=== PATIENT | female | born 1985 | race Hispanic/Latino ===

== ENCOUNTER 2019-09-20 11:34 | Inpatient (IN) | payer OTHER, SELFPAY ==
[2019-09-20] VITALS (16 sets, daily range): BP systolic 113–150; BP diastolic 65–108; PULSE 71–124; RESP 18; TEMP 36.4–36.9; O2SAT 97–99
[2019-09-20 12:16] LABS: Basophils Absolute Auto 0.1 K/mm3 (0.0-0.1); Basophils Percent Auto 0.5 % (0.2-1.2); Eosinophils Percent Auto 0.2 % (0-4.4); Hematocrit 40.9 % (37.0-47.0); Hemoglobin 14.2 g/dL (12.0-15.0); Immature Granulocyte Absolute 0.08 K/mm3 (0.00-0.031); Immature Granulocyte Percent A 0.7 % (0-0.5); Lymphocytes Absolute Auto 1.85 K/mm3 (0.9-3.2); Lymphocytes Percent Auto 15.3 % (18.3-44.2); Mean Corpuscular HGB Conc 34.7 g/dl (32-36); Mean Corpuscular Hemoglobin 29.3 pg (26-34); Mean Corpuscular Volume 84.5 fl (80-100); Mean Platelet Volume 10.8 fl (7.4-10.4); Monocytes Absolute Auto 0.5 K/mm3 (0.1-0.6); Monocytes Percent Auto 4.2 % (2.6-8.5); Neutrophils Absolute Auto 9.6 K/mm3 (1.3-6.7); Neutrophils Percent Auto 79.1 % (45.5-73.1); Platelet Count Result 347 k/mm3 (150-375); Red Blood Count 4.84 M/mm3 (4.2-5.4); Red Cell Distribution Width 13.6 % (11.5-14.5); White Blood Count 12.1 K/mm3 (4.5-10.0)
[2019-09-20] MEDS: OXYTOCIN 30 UNITS/NS 500 ML 30 UNITS/500 ML BAG 999 UNITS (12:40)
--- NOTE | 2019-09-20 12:47 | PM.IMHP ---
H&P: HPI History of Present Illness Chief complaint: active labor Narrative: Coty Olivera is a 34 year old female at 40w0d presented to L&D in labor. On initial exam by staff, she was noted to be 6-7cms and quickly progressed to 8cm. Denies any medical problems or complications with . Review of Systems Constitutional: Constitutional: Reports no additional constitutional complaints ENT: Reports system reviewed and no additional complaints, except as documented Cardiovascular: Cardiovascular: Reports no additional cardiovascular complaints Respiratory: Respiratory: Reports no additional respiratory complaints Gastrointestinal: Comments: painful contractions Genitourinary: Genitourinary: Reports no additional female genitourinary complaints Musculoskeletal: Musculoskeletal: Reports no additional musculoskeletal complaints Integumentary/Breasts: Skin/Breast: Reports system reviewed and no additional complaints, except as docu Neurologic: Reports system reviewed and no additional complaints, except as documented Psychiatric: Psychiatric: Reports no additional psychiatric complaints PMFSH Family History Family History Mother Diabetes mellitus Grandparent Diabetes mellitus Social History Social History Substance use: never Spiritual care concerns: No Meds Home Medications and Allergies Home Medications Medication Instructions Recorded Confirmed Type PNV cmb#95-ferrous fumarate-FA 1 tablet PO DAILY 09/15/19 09/15/19 History [] folic acid 09/15/19 History Allergies Allergy/AdvReac Type Severity Reaction Status Date / Time No Known Allergies Allergy Verified 09/15/19 14:42 Vital Signs Vital Signs - 24 hr 09/20/19 12:04 09/20/19 12:16 09/20/19 12:31 Pulse Rate 102 H 108 H 124 H Blood Pressure 136/94 H 133/90 150/108 H Pulse Oximetry 97 09/20/19 12:42 09/20/19 12:46 Pulse Rate 84 83 Blood Pressure 125/77 127/76 Pulse Oximetry Exam Const: General: uncomfortable (with contractions) Resp: Effort & Inspection: normal respiratory effort Cardio: Rate: regular rate GI: Other: gravid : Other: cervix anterior lip Psych: Mental Status: mental status grossly normal H&P: Results Labs Labs: Short CBC 09/20/19 Range/Units 12:10 WBC 12.1 H (4.5-10.0) K/mm3 Hgb 14.2 (12.0-15.0) g/dL Hct 40.9 (37.0-47.0) % Plt Count 347 (150-375) k/mm3 Assessment and Plan Assessment and plan (1) 40 weeks gestation of : Code(s): Z3A.40 - 40 weeks gestation of Status: Acute (2) Active labor at term: Status: Acute Assessment and Plan: admit for delivery (3) Advanced maternal age in multigravida: Code(s): O09.529 - Supervision of elderly multigravida, unspecified trimester Status: Acute
--- NOTE | 2019-09-20 12:51 | P.PCNOB_ITS ---
OB - Delivery Note Procedure Delivery date: 09/20/19 Procedure: Normal spontaneous vaginal delivery Route of delivery: Laceration description: Perineal - 1st Degree Specimen: Yes (placenta) Estimated blood loss (mL): 100 Anesthesia type: None Complications: meconium stained fluid and nuchal cordx1 reduced at perineum [place] Baby Date of : 09/20/19 Time of : 12:33 Weeks of gestation at delivery: 40 gender: Male Weight (pounds): 8 Weight (ounces): 4 presentation: vertex position: Right Occiput Anterior Placenta delivery description: Spontaneous cord vessel description: 3 Vessels, Nuchal Cord, Loose and Reduced score one minute: 8 score five minutes: 9
--- NOTE | 2019-09-20 13:31 | LDADM ---
This patient, Coty Olivera, was admitted to Labor/Delivery/Recovery 105 on 09/20/19 at 11:34. Plans for labor, pain management and were discussed with patient. Patient/family oriented to hospital policies and general routines including ID bracelet, bed and alarms, visiting hours, pain management, procedures, bathroom and other care routines, personal items, smoking policy, room service/diet and guest tray routines, infant security routines, and visiting hours. Patient/Family are encouraged to report perceived risks to care and to ask questions if they do not understand what they are told or what they should do. See OBIX for further documentation.
[2019-09-20] MEDS: OXYTOCIN 30 UNITS/NS 500 ML 30 UNITS/500 ML BAG 125 UNITS (13:47)
[2019-09-20] MEDS: IBUPROFEN 600 MG TABLET PO (15:53)
[2019-09-20] MEDS: BENZOCAINE 20% AER SPR (*SP) 56 GM CAN 1 SPRAY TOPICAL (15:54)
[2019-09-20] MEDS: LANOLIN (LANSINOH) 7.5 GM CREAM 1 APPLIC TOPICAL (15:54)
[2019-09-20] MEDS: WITCH HAZEL 40 PADS 1 PAD TOPICAL (15:54)
--- NOTE | 2019-09-20 17:32 | PC.NURSE ---
Patient transferred to post room #283 via wheelchair. Support person present. Oriented to unit, room, information board, rooming in, admission packet and security measures. Patient verbalizes understanding.
--- NOTE | 2019-09-20 17:33 | OP_ITS ---
DATE OF PROCEDURE: 09/20/2019 PROCEDURE: Normal spontaneous vaginal delivery. ANESTHESIA: None. ESTIMATED BLOOD LOSS: 100 mL. PREDELIVERY DIAGNOSES: 1. 40-week term gestation. 2. Active labor. 3. Advanced maternal age. POSTDELIVERY DIAGNOSES: 1. 40-week term gestation. 2. Active labor. 3. Advanced maternal age. SPECIMEN: Placenta sent to pathology. FINDINGS: 1. Single live male , born on September 20, 2020 at 1233. Apgars 8 and 9, weight 8 pounds 4 ounces. 2. Meconium-stained fluid. 3. Loose nuchal cord reduced at the perineum. 4. Superficial periurethral laceration and first-degree perineal laceration, hemostatic and no repair needed. BRIEF HISTORY: A 34-year-old, G6, P5, at 40 weeks term gestation, presented to Labor and delivery in active labor. care with Dr. De Anda. The patient was noted to be 6-7 cm dilated, quickly progressed to 8 cm. DESCRIPTION OF PROCEDURE: Once the patient was noted to be ready to push. The labor bed was broken down and the patient's legs were put in stirrups for support. With maternal efforts and contractions, the anterior lip of the cervix was reduced and she was noted to be completely dilated with bulging membranes. Artificial rupture of membranes was performed. Meconium fluid was noted. With contractions and maternal efforts, the presented in MARICRUZ position. The head was delivered. A loose nuchal cord x1 was noted and this was easily reduced at the perineum. Delivery of the anterior shoulder was uneventful followed by the posterior shoulder and the rest of the body. The was vigorous. Delayed cord clamping of 1 minute was performed. Bulb suction was performed. IV oxytocin was administered. Fundal massage applied. The placenta was delivered spontaneously. Exam was performed to identify any lacerations. A superficial periurethral laceration was noted as well as first-degree perineal laceration. They were both hemostatic and thus no repair was needed. At this point, the bleeding has slowed down. The patient tolerated the procedure well. All instrument and sponge counts were correct at the end of the procedure. Yvette I MT: Coco SHARPE
[2019-09-21] MEDS: IBUPROFEN 600 MG TABLET PO ×2 (04:28→13:09)
[2019-09-21 04:46] LABS: Hematocrit 35.7 % (37.0-47.0); Hemoglobin 12.4 g/dL (12.0-15.0)
[2019-09-21 08:05] VITALS: BP 107/76; PULSE 84; RESP 16; TEMP 36.6; O2SAT 97
[2019-09-21] MEDS: MULTIVIT/MIN/PREN/FOL AC/IRON TABLET 1 TAB PO (09:05)
[2019-09-21] MEDS: DOCUSATE SODIUM 100 MG CAPSULE PO (09:05)
[2019-09-21 11:22] LABS: Rapid Plasma Reagin Non-Reactive (NonReactive)
--- NOTE | 2019-09-21 11:50 | PC.NURSE ---
Consult with pt., with as scanning clerk. Mother reports it has been several years since . She denies difficulties and/or discomfort with latching. Mother is currently breast and bottle feeding and reports she will continue with both. Reviewed feeding cues, frequencies, duration of feedings, feeding elimination flow sheet, and signs of adequate intake. Demonstrated stimulation techniques to wake infant for feeding. Discussed weight, output, jaundice and feeding frequencies. Reviewed transition to breast milk, signs of adequate intake, and engorgement/relief. Instructed to call ICP if intake/output less than required. Reviewed regular medications mother is taking. Information provided per Katina. Reviewed community resources on the [employer] website and in the Mom/Baby guide. Information on outpatient services provided. Mother has no further questions at this time. Mother and infant are [facility] clients. Mother asked many appropriate question and nodded and smiled as FOB translated questions/answers. Requested mother call out next feeding so a could be observed before discharge.
--- NOTE | 2019-09-21 13:51 | PM.OBPNVD ---
OB - PN: Subj Subjective Date/time seen: 09/21/19 13:51 Mercedes is a 34yo now [id number] s/p , PPD#1 Today, she reports doing well. She is tolerating regular diet w/o N/V. She is passing gas and voiding spontaneously. She is ambulating w/o s/sx of anemia. She states her pain is controlled. 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 She would like to go home today. She does not want her son to be circumcised. OB - PN: Obj Data Labs CBC & Chem 7: 09/21/19 04:23 Labs: Laboratory Results - last 24 hr 09/20/19 09/20/19 09/21/19 12:10 12:10 04:23 Hgb 12.4 Hct 35.7 L RPR Non-reactive Blood Type B Positive Antibody Screen Negative OB - PN A/P Assessment and Plan (1) Normal vaginal delivery: Code(s): O80 - Encounter for full-term uncomplicated delivery Status: Acute (2) Advanced maternal age in multigravida: Qualifiers: Trimester: unspecified trimester Qualified Code(s): O09.529 - Supervision of elderly multigravida, unspecified trimester Code(s): O09.529 - Supervision of elderly multigravida, unspecified trimester Status: Acute Plan day: 1 Plan: routine care, discharge home and follow up 6 weeks (with Dr. De Anda) Time Spent With Patient Time: Total time spent is greater than 50% in coordination of care (as documented) at patient's floor/unit and/or counseling patient: Review of Systems Constitutional: Constitutional: Denies body ache(s) and Denies chills Cardiovascular: Cardiovascular: Denies rapid heart rate Respiratory: Respiratory: Denies cough and Denies dyspnea Gastrointestinal: Gastrointestinal: Denies abdominal pain, Denies nausea and Denies vomiting Genitourinary: Genitourinary: Reports pelvic pain Neurologic: Denies headache(s) Exam Const: General: comfortable, no acute distress, alert and awake Orientation/consciousness: patient oriented x3 Resp: Effort & Inspection: normal respiratory effort Auscultation: clear to auscultation bilaterally Cardio: Rate: regular rate GI: Auscultation: normal bowel sounds : Other: fundus firm below umbilicus; normal lochia Psych: Appearance: grossly normal Affect: normal affect Attitude: cooperative Judgement: Good judgement present (Psych)
[2019-09-21] MEDS: METHYLERGONOVINE MALEATE 0.2 MG/ML VIAL IM (14:32)
--- NOTE | 2019-09-21 19:54 | PC.NURSE ---
FOB translated for pt most of the day. The [employer] Video line was used for D/C teaching. She V/U'd to it all.
[2019-09-22 10:06] VITALS: BP 118/81; PULSE 90; RESP 14; TEMP 37.1
--- NOTE | 2019-09-23 09:01 | PM.OBDSVD ---
DS: Admitting Diagnosis Admitting Diagnosis Admitting Diagnosis: Encounter for supervision of normal , unspecified, third trimester DS: Discharge Diagnosis Discharge Diagnosis (1) Normal vaginal delivery: Code(s): O80 - Encounter for full-term uncomplicated delivery Status: Acute OB - DS: Summary OB Procedures : None OB Procedures Intrapartum: Spontaneous Vag Delivery OB Procedures: : None Peripartum Data Infant Delivery Method: Natural Vaginal complications: none Status at Discharge Functional status at discharge: independent ambulation Time Spent with Patient Time attestation: Total time spent providing and/or coordinating discharge services: Exam Const: General: comfortable, no acute distress, alert, awake and uncomfortable (with contractions) Orientation/consciousness: patient oriented x3 Resp: Effort & Inspection: normal respiratory effort Auscultation: clear to auscultation bilaterally Cardio: Rate: regular rate GI: Auscultation: normal bowel sounds Other: gravid : Other: fundus firm below umbilicus; normal lochia Neuro: General: patient oriented x3 Psych: Appearance: grossly normal Mental Status: mental status grossly normal Affect: normal affect Attitude: cooperative Judgement: Good judgement present (Psych) DS: Data Data Completed and Pending Pending studies at discharge: Pending at discharge 09/20/19 14:07 Surgical [PTH] Routine Discharge Plan Discharge Attending physician on discharge: Bety Mays Consulting providers: Eli Strong Discharging Clinician: Bety Mays Anticipated Discharge Date/Time: 09/21/19 16:00 Patient Disposition: Home, Self-Care Activity: pelvic rest Diet: regular Discharge Instructions: Education: Mom and Baby Guide Given to: Mother Follow-Up: Call your delivering provider's office for an appointment to be seen in: 6 weeks Mom and baby should come to the [facility] for the follow-up appointment. Appointment Date/Time: September 22, 2019 at 10:00 am What to expect at your follow-up visit: Physical Assessment Call [phone] if you are unable to keep your appointment time. BREAST CARE: 1. Wear a snug supportive bra. 2. For engorgement discomfort: Breast Feeding: A. Apply warm moist washcloths B. Express milk as needed to relieve engorgement C. Wear loose clothing 3. For sore nipples: A. Identify correct latch-on B. Apply warm moist washcloths before and after nursing C. Air dry nipples after nursing D. May apply Lansinoh cream to nipples EPISIOTOMY/PERINEAL CARE: 1. Until bleeding stops, use your bria bottle after urinating 2. Change your pad frequently throughout the day 3. You may take sitz baths several times a day (fill your bathtub with warm water and soak for 20 minutes.) Do NOT bathe in the water 4. No tub baths until seen by your physician - You may shower ACTIVITY: 1. Rest as much as possible. 2. Do not exercise or lift anything heavier than your baby (such as laundry or other children.) 3. Avoid stairs or driving as much as possible. 4. Do not put anything into the vagina. No douching, tampons, or sexual activity until seen by physician. NOTIFY PHYSICIAN IF YOU HAVE ANY QUESTIONS OR IF ANY OF THE FOLLOWING SYMPTOMS OCCUR: 1. If your perineum becomes red, swollen, or more painful than what you have experienced in the hospital. 2. If your vaginal bleeding becomes foul smelling. 3. If your vaginal bleeding becomes more heavy than a period or if your bleeding changes from pink to bright red. However, you may pass an occasional walnut-sized clot once or twice for the first week . 4. If you experience a sharp, shooting pain in you calves. 5. If you discover a hard, reddened area on your breast or if you experience flu-like symptoms. DIET:
== END 2019-09-21 19:08 | disposition home or self-care (01) | DRG 560 ==
LOC: ANHLDR 12:16 → ANHOB2 09-21 13:59 → ANHLDR 09-23 07:37 → ANHOB2 09-23 07:37
PROVIDERS: Obstetrics & Gynecology; Admitting Provider Obstetrics & Gynecology; Visit Provider Obstetrics & Gynecology
DX: O77.0 Labor and delivery complicated by meconium in amniotic fluid (principal); Z37.0 Single live birth; Z3A.40 40 weeks gestation of pregnancy; O70.0 First degree perineal laceration during delivery; O71.82 Other specified trauma to perineum and vulva; O69.81X0 Labor and delivery complicated by cord around neck, without compression, not applicable or unspecified
CPT/HCPCS: 36415; 85014; 85018; 85025; 86592; 86850; 86900; 86901; 88307; A9270; J2210; J2590; J7120